=== PATIENT | male | born 1990 | race African-American/Black ===

== ENCOUNTER 2018-05-19 22:51 | Emergency (ER) | payer OTHER ==
[~2018-05-19] VITALS: Ht 172.7 cm; Wt 63.5 kg
[~2018-05-19 22:51] MED LIST: ALBU8.5H4 IH
--- NOTE | 2018-05-19 22:59 | NUR ---
CALLED PT FOR TRIAGE; NOT IN LOBBY.
--- NOTE | 2018-05-19 23:05 | NUR ---
PT BBSELF FROM HOME C/C ASTHMA ATTACK SINCE 2099, RAN OUT OF INHALER. -CP, AFEBRILE. AUDIBLE WHEEZING. PT ON MONITOR IN BED 8. WILL CONTINUE TO MONITOR.
[2018-05-19] MEDS ORDERED: Magnesium 1GM/D5W 100ML PREMIX 200 ML IV ONE (23:06)
--- NOTE | 2018-05-19 23:06 | NUR ---
ADDENDUM: Intravenous End Time Documentation: Magnesium 1 gram IVPB : start time: 2306 pm; end time: 2347 pm: IV site:LAC #20 Port # 1
[2018-05-19] MEDS ORDERED: ALBUTEROL FS 2.5 MG/3 ML VIAL.NEB ONE ×2 (23:14→23:46)
[2018-05-19] MEDS ORDERED: IPRATROPIUM NEB FS 0.5 MG/2.5 ML AMPUL.NEB ONE (23:14)
[2018-05-19] MEDS ORDERED: IPRATROPIUM NEB FS 0.5 MG/2.5 ML AMPUL.NEB NEB ONE (23:30)
[2018-05-19] MEDS ORDERED: ALBUTEROL FS 2.5 MG/3 ML VIAL.NEB CONTNEB ONE (23:30)
[2018-05-19] MEDS ORDERED: IV NS 0.9% 500 ML IV ONE (23:30)
[2018-05-19] MEDS ORDERED: methylPREDNISolone SOD SUCC 125 MG/2ML VIAL IV ONE (23:30)
[2018-05-19] MEDS ORDERED: Magnesium 1GM/D5W 100ML PREMIX 100 ML IV ONE (23:33)
[2018-05-19] MEDS ORDERED: methylPREDNISolone SOD SUCC 125 MG/2ML VIAL ONE (23:33)
[2018-05-19 23:51] VITALS: BP 134/78
[2018-05-20] MEDS ORDERED: ALBUTEROL FS 2.5 MG/3 ML VIAL.NEB NEB ONE
--- NOTE | 2018-05-20 01:11 | NUR ---
IV removed. Catheter intact and site benign. Pressure and 4x4 applied to site. No bleeding noted.Patient discharged to home in stable condition. Written and verbal after care instructions given. Patient verbalizes understanding of instruction. PT AMBULATORY WITH STEADY GAIT.
== END 2018-05-20 01:13 | disposition home or self-care (01) ==
LOC: ER 22:52
DX: J45.901 Unspecified asthma with (acute) exacerbation (principal); E11.9 Type 2 diabetes mellitus without complications; D64.9 Anemia, unspecified; F12.90 Cannabis use, unspecified, uncomplicated; Z88.2 Allergy status to sulfonamides; Z91.018 Allergy to other foods
CPT/HCPCS: 71045; 94644; 96365; 96375; 99285; A4606; J2930; J3475; Z7610

== ENCOUNTER 2019-02-26 01:05 | Emergency (ER) | payer SELFPAY ==
[~2019-02-26] VITALS: Ht 172.7 cm; Wt 65.8 kg
--- NOTE | 2019-02-26 01:30 | NUR ---
BIBSELF FROM HOME TO ER BED 9. AAOX4. NO RESP DISTRESS NOTED, BREATHING EVEN AND UNLABORED. AMBULATORY. CAME IN FOR MEDICATION REFILL. PT STATES THAT HE IS DIABETIC AND RUN OUT OF HIS LONG ACTING INSULIN FOR SEVERAL WEEKS AND ONLY USING THE REGULAR INSULIN. PT REPORTS THAT HE USED UP HIS LAST INSULIN ANF HAVE NO MORE. PT IS AWARE OF HIS INSULIN TX. AWAITING MD FOR EVAL.
[2019-02-26] MEDS ORDERED: IV NS 0.9% 1,000 ML IV PRN ×3 (02:30)
[2019-02-26 02:32] LABS: BASOPHILS # (AUTO) 0.1 /CMM (0.0-0.2); BASOPHILS % (AUTO) 1.7 % (0.0-2.0); EOSINOPHILS % (AUTO) 9.7 % (0.0-6.0); HEMATOCRIT 41 % (39-51); HEMOGLOBIN 12.9 g/dL (13.5-17.5); LYMPHOCYTES # (AUTO) 2.4 /CMM (0.8-4.8); LYMPHOCYTES % (AUTO) 39.3 % (20.0-44.0); MEAN CORPUSCULAR HGB CONC 32 g/dl (31.0-36.0); MEAN CORPUSCULAR VOLUME 87 fL (80-96); MONOCYTES # (AUTO) 0.4 /CMM (0.1-1.30); MONOCYTES % (AUTO) 6.9 % (2.0-12.0); NEUTROPHILS # (AUTO) 2.6 /CMM (1.8-8.9); NEUTROPHILS % (AUTO) 42.4 % (43.0-81.0); PLATELET COUNT (AUTO) 215 /CMM (150-450); RED BLOOD CELL COUNT(AUTO) 4.68 MIL/uL (4.5-6.0); WHITE BLOOD COUNT (AUTO) 6.1 K/uL (4.3-11.0)
[2019-02-26 02:43] LABS: CALCIUM, SERUM 8.5 mg/dL (8.5-10.1); CARBON DIOXIDE 27 mmol/L (21-32); CHLORIDE 97 mmol/L (98-107); CREATININE 1.4 mg/dL (0.6-1.3); POTASSIUM 4.2 mmol/L (3.5-5.1); SODIUM SERUM 134 mmol/L (136-145); UREA NITROGEN, BLOOD 18 mg/dL (7-18)
[2019-02-26 02:47] LABS: GLUCOSE 540 mg/dL (74-106)
[2019-02-26] MEDS ORDERED: INSULIN REGULAR, HUMAN 100 UNIT/ML 10 ML VIAL IV ONE (03:00)
[2019-02-26] MEDS ORDERED: INSULIN REGULAR, HUMAN 100 UNIT/ML 10 ML VIAL ONE (03:15)
[2019-02-26] MEDS ORDERED: INSULIN GLARGINE, 100 UNIT/ML CARTRIDGE SQ SCH (04:00)
[2019-02-26] MEDS ORDERED: INSULIN GLARGINE, 100 UNIT/ML CARTRIDGE SQ ONE (04:06)
--- NOTE | 2019-02-26 04:19 | NUR ---
INSULIN GLARGUNE 40UNIT VERIFIED BY ED, RN
--- NOTE | 2019-02-26 04:26 | NUR ---
Patient discharged to home in stable condition. Written and verbal after care instructions given. Patient verbalizes understanding of instruction.IV removed. Catheter intact and site benign. Pressure and 4x4 applied to site. No bleeding noted. Pt ambulatory with a steady gait
[2019-02-26 04:30] VITALS: BP 119/67
--- NOTE | 2019-02-26 04:37 | NUR ---
PER MD ORDER, DISPENSE REMAINDER OF INSULIN GLARGINE KWIK TO PT UPON DISCHARGE. NO NEEDLES GIVEN TO PT FOR SAFETY, PT HAVE KWIKPEN NEEDLES AT HOME. REGULAR INSULIN REMAINDER WAS DISPOSED IN THE MED DISPOSAL BIN. PT WAS HANDED THE KWIK PEN. PT TEACHING GIVEN AND RETURN DEMO AND VERBALIZATION DONE BY THE PT.
== END 2019-02-26 04:41 | disposition home or self-care (01) ==
LOC: ER 01:06
DX: E11.65 Type 2 diabetes mellitus with hyperglycemia (principal); J45.909 Unspecified asthma, uncomplicated; E55.9 Vitamin D deficiency, unspecified; F10.10 Alcohol abuse, uncomplicated; F17.200 Nicotine dependence, unspecified, uncomplicated; F12.10 Cannabis abuse, uncomplicated; Y90.9 Presence of alcohol in blood, level not specified; Z91.018 Allergy to other foods; Z88.2 Allergy status to sulfonamides; Z79.4 Long term (current) use of insulin; Z79.899 Other long term (current) drug therapy
CPT/HCPCS: 36415; 80048; 82010; 82962 ×3; 85025; 96361; 96372; 96374; 99283; 99406; J1815 ×3; J7030